=== PATIENT | female | born 1945 | race Caucasian/White ===

== ENCOUNTER 2024-10-27 10:41 | Outpatient (CLI) | payer OTHER, SELFPAY | END 2024-10-27 10:42 | disposition home or self-care (01) | PROVIDERS: PCP Nurse Practitioner Family; Visit Provider Family Medicine | DX: E78.2 Mixed hyperlipidemia (principal); I10 Essential (primary) hypertension; G62.0 Drug-induced polyneuropathy; T45.1X5A Adverse effect of antineoplastic and immunosuppressive drugs, initial encounter; M81.0 Age-related osteoporosis without current pathological fracture; I48.91 Unspecified atrial fibrillation; I50.22 Chronic systolic (congestive) heart failure | CPT/HCPCS: 80053; 80061; 82306; 82607; 82746; 84443; 86803 ==